=== PATIENT | female | born 1980 | race African-American/Black ===

== ENCOUNTER 2019-02-19 01:31 | Observation (INO) ==
[2019-02-19] MEDS ORDERED: ONDANSETRON 4 MG/2 ML VIAL IV STA (01:59)
[2019-02-19] MEDS ORDERED: MORPHINE 4 MG/1 ML VIAL IV STA (01:59)
[2019-02-19] MEDS ORDERED: ALUM/MAG/SIMETH/LIDO VISC 1:1 30 ML BOTTLE PO STA (01:59)
[2019-02-19] MEDS ORDERED: NITROGLYCERIN 2% OINT 1 INCH/GM PACK TOP STA (01:59)
[2019-02-19] MEDS ORDERED: ASPIRIN 325 MG TABLET PO STA (01:59)
[2019-02-19 02:09] LABS: Basophils # 0.1 10*3/uL (0.0-0.2); Basophils % 0.7 % (0.0-0.8); Eosinophils # 0.1 10*3/uL (0.0-0.87); Eosinophils % 1.9 % (0.00-10.9); Hematocrit 38.3 VOL% (35.7-47.0); Hemoglobin 11.8 GM/DL (12.0-16.0); Immature Granulocytes % 0.5 %; Immature Granulocytes Absolute 0.04 #; Lymphocytes # 3.2 10*3/uL (1.4-4.0); Lymphocytes % 43.7 % (21.3-54.2); Mean Corpuscular HGB Conc 30.8 GM/DL (32-36); Mean Corpuscular Volume 90.1 FL (87-102); Mean Platelet Volume 9.4 FL (9.6-12.0); Monocytes % 8.5 % (1.7-12.7); Neutrophils % 44.7 % (38.7-73.9); Platelet Count 313 T/CUMM (130-400); Red Blood Count 4.25 MC/CUMM (3.8-5.5); Red Cell Distribution Width 13.2 % (9.3-17.3); White Blood Count 7.4 T/CUMM (4-12)
[2019-02-19 02:19] LABS: INR 0.9; PT Patient Result 9.4 SECS
[2019-02-19 02:47] LABS: Alanine Aminotransferase 26 U/L (13-56); Albumin 3.9 G/DL (3.4-5.0); Alkaline Phosphatase 123 U/L (45-117); Aspartate Amino Transferase 13 U/L (0-37); Bilirubin,Total < 0.39 MG/DL (0.2-1.0); Blood Urea Nitrogen 4 MG/DL (7-18); Glucose 142 MG/DL (74-106); Osmolality,Calculated 273.7 MOS/KG (273-304); Total Protein 7.3 G/DL (6.4-8.3)
[2019-02-19] MEDS ORDERED: ONDANSETRON 4 MG/2 ML VIAL IV PRN (05:22)
[2019-02-19] MEDS ORDERED: GLUCAGON 1 MG VIAL IM PRN (05:22)
[2019-02-19] MEDS ORDERED: BISACODYL 5 MG TABLET PO PRN (05:22)
[2019-02-19] MEDS ORDERED: POTASSIUM CHLORIDE 20 MEQ TABLET PO PRN ×2 (05:22→15:22)
[2019-02-19] MEDS ORDERED: NICOTINE 21 MG/24 HR PATCH TRANSDERM PRN (05:22)
[2019-02-19] MEDS ORDERED: MAGNESIUM SULF RIDER 2 GM in PREMIX 1 EACH IV PRN (05:22)
[2019-02-19] MEDS ORDERED: DEXTROSE 50% 25 GM/50 ML SYRINGE IV PRN (05:22)
[2019-02-19] MEDS ORDERED: MAGNESIUM SULF RIDER 4 GM in PREMIX 1 EACH IV PRN (05:22)
[2019-02-19] MEDS ORDERED: ACETAMINOPHEN 325 MG TABLET PO PRN (05:22)
[2019-02-19 07:04] LABS: Risk Ratio 1.75; Thyroid Stimulating Hormone 2.05 uIU/ml (0.358-3.74); VLDL CHOLESTEROL 11.4 MG/DL
[2019-02-19] MEDS: INSULIN REGULAR 100 UNIT/ML SUBCUT SCH ×4 (07:26→21:28)
[2019-02-19] MEDS: ASPIRIN 325 MG TABLET PO SCH (09:18)
[2019-02-19] MEDS: PANTOPRAZOLE 40 MG TABLET PO SCH (09:18)
[2019-02-19] MEDS: ENOXAPARIN 40 MG/0.4 ML SYRINGE SUBCUT SCH (09:20)
[2019-02-19] MEDS: MORPHINE 4 MG/1 ML VIAL IV PRN ×2 (09:47→14:33)
[2019-02-19 09:55] LABS: Troponin I < 0.015 NG/ML (0.00-0.045)
[2019-02-19] MEDS ORDERED: ALUM/MAG/SIMETH/LIDO VISC 1:1 30 ML BOTTLE PO PRN (10:21)
[2019-02-19] MEDS ORDERED: NITROGLYCERIN SL 0.4 MG TABLET SL PRN (10:21)
[2019-02-19] MEDS: amLODIPine 10 MG TABLET PO SCH (11:54)
[2019-02-19] MEDS: hydroCHLOROthiazide 12.5 MG CAPSULE PO SCH (11:54)
[2019-02-19] MEDS: VALSARTAN 160 MG TABLET PO SCH (12:28)
[2019-02-19] MEDS: FUROSEMIDE 40 MG/4 ML VIAL IV SCH (15:37)
[2019-02-19] MEDS: CARVEDILOL 12.5 MG TABLET PO SCH (17:12)
[2019-02-19 18:52] LABS: Troponin I < 0.015 NG/ML (0.00-0.045)
[2019-02-19] MEDS ORDERED: ROSUVASTATIN 10 MG TABLET PO SCH (21:00)
[2019-02-20 05:09] LABS: Basophils % 0.5 % (0.0-0.8); Eosinophils # 0.1 10*3/uL (0.0-0.87); Eosinophils % 1.3 % (0.00-10.9); Hematocrit 36.3 VOL% (35.7-47.0); Hemoglobin 11.4 GM/DL (12.0-16.0); Immature Granulocytes % 0.3 %; Immature Granulocytes Absolute 0.02 #; Lymphocytes # 2.9 10*3/uL (1.4-4.0); Lymphocytes % 38.1 % (21.3-54.2); Mean Corpuscular HGB Conc 31.4 GM/DL (32-36); Monocytes % 8.9 % (1.7-12.7); Neutrophils % 50.9 % (38.7-73.9); Platelet Count 310 T/CUMM (130-400); Red Blood Count 4.08 MC/CUMM (3.8-5.5); Red Cell Distribution Width 13.2 % (9.3-17.3); White Blood Count 7.7 T/CUMM (4-12)
[2019-02-20 05:21] LABS: Calcium 9.1 MG/DL (8.5-10.1); Osmolality,Calculated 273.8 MOS/KG (273-304)
[2019-02-20] MEDS: MORPHINE 4 MG/1 ML VIAL IV PRN (08:44)
[2019-02-20] MEDS: FUROSEMIDE 40 MG/4 ML VIAL IV SCH (12:40)
[2019-02-20] MEDS: ENOXAPARIN 40 MG/0.4 ML SYRINGE SUBCUT SCH (12:40)
[2019-02-20] MEDS: amLODIPine 10 MG TABLET PO SCH (12:41)
[2019-02-20] MEDS: ASPIRIN 325 MG TABLET PO SCH (12:42)
[2019-02-20] MEDS: hydroCHLOROthiazide 12.5 MG CAPSULE PO SCH (12:42)
[2019-02-20] MEDS: PANTOPRAZOLE 40 MG TABLET PO SCH (12:42)
[2019-02-20] MEDS: CARVEDILOL 12.5 MG TABLET PO SCH (12:42)
[2019-02-20] MEDS: INSULIN REGULAR 100 UNIT/ML SUBCUT SCH ×2 (12:43)
[2019-02-20] MEDS: VALSARTAN 160 MG TABLET PO SCH (12:45)
[2019-02-20 16:24] VITALS: BP 129/91
== END 2019-02-20 16:45 | disposition home or self-care (01) ==
LOC: N.ED 01:31 → N.EDINP 01:31 → N.2E 06:00
PROVIDERS: ADMIT Hospitalist; ATTEND Hospitalist

== ENCOUNTER 2021-11-15 14:49 | Inpatient (IN) ==
[2021-11-15 16:55] LABS: Basophils % 0.2 % (0.0-0.8); Hematocrit 32.8 VOL% (35.7-47.0); Hemoglobin 10.7 GM/DL (12.0-16.0); Immature Granulocytes % 7.9 %; Immature Granulocytes Absolute 1.37 #; Lymphocytes % 17.4 % (21.3-54.2); Mean Corpuscular HGB Conc 32.6 GM/DL (32-36); Mean Corpuscular Volume 96.2 FL (87-102); Mean Platelet Volume 9.6 FL (9.6-12.0); Monocytes % 1.7 % (1.7-12.7); NRBC # 0.08 10*3/uL; Neutrophils % 72.8 % (38.7-73.9); Platelet Count 509 T/CUMM (130-400); Red Blood Count 3.41 MC/CUMM (3.8-5.5); Red Cell Distribution Width 16.5 % (9.3-17.3); White Blood Count 17.3 T/CUMM (4-12)
[2021-11-15 17:02] LABS: Bacteria,Urine Occasional /HPF (Few); Bilirubin,Urine Negative (Negative); Blood, Urine Moderate mg/dL (Negative); Glucose,Urine (UA) >=500 mg/dL (Negative); Ketones,Urine Negative (Negative); Nitrite,Urine Negative (Negative); Protein,Urine Negative; RBC,Urine 4 /HPF (0-4); Squamous Epithelial Cell,Urine Occasional /HPF (0-10); Urine Appearance CLEAR (Clear); Urine Color Yellow (Yellow); Urine Urobilinogen < 2.0 EU/DL (<2.0)
[2021-11-15 17:18] LABS: Alanine Aminotransferase 188 U/L (13-56); Albumin 2.5 G/DL (3.4-5.0); Alkaline Phosphatase 123 U/L (45-117); Aspartate Amino Transferase 368 U/L (0-37); Bilirubin,Total < 0.39 MG/DL (0.20-1.00); Blood Urea Nitrogen 54 MG/DL (7-18); Calcium 9.3 MG/DL (8.5-10.1); Carbon Dioxide 21 MMOL/L (21-32); Estimated Glom Filtration Rate 38 ML/MIN; Glucose 429 MG/DL (74-106); Osmolality,Calculated 307.7 MOS/KG (273-304); Potassium 4.4 MMOL/L (3.5-5.1); Sodium 138 MMOL/L (136-145); Total Protein 6.9 G/DL (6.4-8.2)
[2021-11-15] MEDS ORDERED: hydrALAZINE 20 MG/1 ML VIAL IV STA (17:24)
[2021-11-15 17:29] LABS: Band Neutrophils 4 % (0-10); Lymphocytes 9 % (20-55); Metamyelocytes 2 %; Nucleated Red Blood Cells 2 (0-5); Segmented Neutrophils 74 % (50-85); Total Cells Counted 100
[2021-11-15 17:31] LABS: Anisocytosis 1+; Atypical Lymphocytes 1+; Macrocytosis 1+; Microcytosis 1+; Platelet Estimate Normal; Polychromasia Few
[2021-11-15 17:54] LABS: ABG Base Excess -3.7 MMOL/L (-2.5-2.5); ABG HCO3 21.2 MMOL/L (20-26); ABG Oxygen Saturation 94.5 % (95-100); ABG PCO2 35.4 MM HG (35-48); ABG PH 7.377 (7.35-7.45); ABG PO2 76.8 MM HG (80-95); ABG TCO2 18.7 MMOL/L (23-27)
[2021-11-15] MEDS ORDERED: ONDANSETRON 4 MG/2 ML VIAL IV PRN (18:06)
[2021-11-15] MEDS ORDERED: DEXTROSE 50% 25 GM/50 ML VIAL IV PRN (18:06)
[2021-11-15] MEDS ORDERED: GLUCAGON 1 MG VIAL IM PRN ×2 (18:06)
[2021-11-15] MEDS ORDERED: DEXTROSE 10% 25 GM/250 ML BAG IV PRN (18:16)
[2021-11-15] MEDS: SODIUM CHLORIDE 0.45% 1,000 ML IV SCH (18:30)
[2021-11-15 18:56] LABS: Ferritin 451.4 ng/mL (8-252)
[2021-11-15] MEDS ORDERED: INSULIN REGULAR 100 UNIT/ML SUBCUT SCH (21:00)
[2021-11-15] MEDS: HEPARIN 5,000 UNIT/1 ML VIAL SUBCUT SCH (22:00)
[2021-11-15] MEDS: cefTRIAXone 1,000 MG in SODIUM CHLORIDE 0.9% 100 ML IV SCH (22:00)
[2021-11-15] MEDS: INSULIN REGULAR 100 UNIT/ML SUBCUT SCH (22:00)
[2021-11-16] MEDS: SODIUM CHLORIDE 0.45% 1,000 ML IV SCH ×3 (03:03→17:33)
[2021-11-16] MEDS: INSULIN REGULAR 100 UNIT/ML SUBCUT SCH ×4 (08:34→20:52)
[2021-11-16] MEDS: PANTOPRAZOLE 40 MG TABLET PO SCH (08:34)
[2021-11-16] MEDS: HEPARIN 5,000 UNIT/1 ML VIAL SUBCUT SCH ×2 (08:34→17:19)
[2021-11-16] MEDS ORDERED: DEXAMETHASONE 4 MG TABLET PO SCH (09:00)
[2021-11-16] MEDS ORDERED: AZITHROMYCIN INJ 500 MG in SODIUM CHLORIDE 0.9% 250 ML IV SCH (13:00)
[2021-11-16 13:26] LABS: Basophils % 0.2 % (0.0-0.8); Hemoglobin 9.8 GM/DL (12.0-16.0); Immature Granulocytes % 11.7 %; Immature Granulocytes Absolute 1.83 #; Lymphocytes # 1.1 10*3/uL (1.4-4.0); Lymphocytes % 7.1 % (21.3-54.2); Mean Corpuscular HGB Conc 32.7 GM/DL (32-36); Mean Corpuscular Volume 96.8 FL (87-102); Mean Platelet Volume 9.7 FL (9.6-12.0); Monocytes % 8.8 % (1.7-12.7); NRBC # 0.05 10*3/uL; Neutrophils % 72.2 % (38.7-73.9); Platelet Count 425 T/CUMM (130-400); Red Cell Distribution Width 16.3 % (9.3-17.3); White Blood Count 15.6 T/CUMM (4-12)
[2021-11-16] MEDS: methylPREDNISolone SOD SUC 40 MG/1 ML VIAL IV SCH ×2 (13:37→17:19)
[2021-11-16] MEDS: BACITRACIN OINT 0.9 GM PACK TOP SCH (13:38)
[2021-11-16 13:43] LABS: Albumin 2.3 G/DL (3.4-5.0); Bilirubin,Total 0.6 MG/DL (0.20-1.00); Calcium 8.6 MG/DL (8.5-10.1); Osmolality,Calculated 289.1 MOS/KG (273-304); Potassium 4.2 MMOL/L (3.5-5.1); Total Protein 6.2 G/DL (6.4-8.2)
[2021-11-16] MEDS ORDERED: REMDESIVIR 200 MG in SODIUM CHLORIDE 0.9% 210 ML IV ONE (13:45)
[2021-11-16] MEDS: INSULIN GLARGINE 100 UNIT/ML SUBCUT SCH (20:52)
[2021-11-16] MEDS: cefTRIAXone 1,000 MG in SODIUM CHLORIDE 0.9% 100 ML IV SCH (20:53)
[2021-11-17] MEDS: methylPREDNISolone SOD SUC 40 MG/1 ML VIAL IV SCH ×2 (00:10→05:11)
[2021-11-17] MEDS: HEPARIN 5,000 UNIT/1 ML VIAL SUBCUT SCH ×2 (00:10→08:57)
[2021-11-17] MEDS: SODIUM CHLORIDE 0.45% 1,000 ML IV SCH (03:37)
[2021-11-17 06:42] LABS: Alanine Aminotransferase 146 U/L (13-56); Albumin 2.3 G/DL (3.4-5.0); Alkaline Phosphatase 106 U/L (45-117); Aspartate Amino Transferase 178 U/L (0-37); Bilirubin,Direct < 0.050 MG/DL (0.0-0.20); Bilirubin,Indirect 0.4 MG/DL (0.0-1.0); Blood Urea Nitrogen 28 MG/DL (7-18); Calcium 8.8 MG/DL (8.5-10.1); Carbon Dioxide 16 MMOL/L (21-32); Estimated Glom Filtration Rate 77 ML/MIN; Glucose 265 MG/DL (74-106); Osmolality,Calculated 278.5 MOS/KG (273-304); Sodium 132 MMOL/L (136-145); Total Protein 6.5 G/DL (6.4-8.2)
[2021-11-17 06:51] LABS: Albumin 2.3 G/DL (3.4-5.0); Bilirubin,Total 0.4 MG/DL (0.20-1.00); Calcium 8.8 MG/DL (8.5-10.1); Osmolality,Calculated 276.7 MOS/KG (273-304); Total Protein 6.4 G/DL (6.4-8.2)
[2021-11-17 08:05] VITALS: BP 160/95
[2021-11-17 08:27] LABS: Basophils # 0.1 10*3/uL (0.0-0.2); Basophils % 0.3 % (0.0-0.8); Hematocrit 32.2 VOL% (35.7-47.0); Hemoglobin 10.7 GM/DL (12.0-16.0); Immature Granulocytes % 14.5 %; Immature Granulocytes Absolute 3.22 #; Lymphocytes # 1.8 10*3/uL (1.4-4.0); Lymphocytes % 8.1 % (21.3-54.2); Mean Corpuscular HGB Conc 33.2 GM/DL (32-36); Mean Corpuscular Volume 94.2 FL (87-102); Mean Platelet Volume 9.2 FL (9.6-12.0); Monocytes % 6.7 % (1.7-12.7); NRBC # 0.07 10*3/uL; Neutrophils % 70.4 % (38.7-73.9); Platelet Count 448 T/CUMM (130-400); Red Blood Count 3.42 MC/CUMM (3.8-5.5); Red Cell Distribution Width 15.6 % (9.3-17.3); White Blood Count 22.1 T/CUMM (4-12)
[2021-11-17] MEDS: BACITRACIN OINT 0.9 GM PACK TOP SCH (08:56)
[2021-11-17] MEDS: PANTOPRAZOLE 40 MG TABLET PO SCH (08:56)
[2021-11-17 09:00] LABS: Band Neutrophils 2 % (0-10); Hypochromia Slight; Lymphocytes 5 % (20-55); Metamyelocytes 6 %; Microcytosis 1+; Myelocytes 1 %; Polychromasia Slight; Segmented Neutrophils 79 % (50-85); Total Cells Counted 100
[2021-11-17] MEDS ORDERED: REMDESIVIR 100 MG in SODIUM CHLORIDE 0.9% 100 ML IV SCH (09:00)
[2021-11-17 09:01] LABS: Platelet Estimate Increased
[2021-11-17] MEDS: INSULIN GLARGINE 100 UNIT/ML SUBCUT SCH (10:15)
[2021-11-17] MEDS: INSULIN REGULAR 100 UNIT/ML SUBCUT SCH (10:15)
== END 2021-11-17 12:42 | disposition home health service (06) | DRG 178 ==
LOC: N.ED 14:49 → N.TELEN 17:30 → SUATTDRO 17:30 → N.TELEN 22:32
PROVIDERS: ADMIT Internal Medicine; ATTEND Emergency Medicine

== ENCOUNTER 2022-03-14 15:03 | Inpatient (IN) ==
[2022-03-14] MEDS ORDERED: NALOXONE 0.4 MG/ML VIAL ONE (16:27)
[2022-03-14] MEDS ORDERED: SODIUM CHLORIDE 0.9% 1,000 ML IV STA (16:30)
[2022-03-14] MEDS ORDERED: NALOXONE 0.4 MG/ML VIAL IV STA (16:30)
[2022-03-14 18:00] LABS: Alanine Aminotransferase 100 U/L (13-56); Albumin 2.9 G/DL (3.4-5.0); Alkaline Phosphatase 92 U/L (45-117); Aspartate Amino Transferase 208 U/L (0-37); Blood Urea Nitrogen 20 MG/DL (7-18); Calcium 8.6 MG/DL (8.5-10.1); Carbon Dioxide 27 MMOL/L (21-32); Chloride 98 MMOL/L (98-107); Glucose 164 MG/DL (74-106); Osmolality,Calculated 268.7 MOS/KG (273-304); Potassium 5.7 MMOL/L (3.5-5.1); Sodium 131 MMOL/L (136-145); Total Protein 5.9 G/DL (6.4-8.2)
[2022-03-14 18:03] LABS: Lactic Acid 2.4 MMOL/L (0.4-2.0)
[2022-03-14 18:21] LABS: Basophils % 0.4 % (0.0-0.8); Eosinophils % 0.1 % (0.00-10.9); Hematocrit 32.5 VOL% (35.7-47.0); Immature Granulocytes % 1.6 %; Immature Granulocytes Absolute 0.15 #; Lymphocytes # 0.8 10*3/uL (1.4-4.0); Lymphocytes % 8.7 % (21.3-54.2); Mean Corpuscular HGB Conc 30.8 GM/DL (32-36); Mean Corpuscular Volume 96.4 FL (87-102); Mean Platelet Volume 9.7 FL (9.6-12.0); Monocytes # 0.9 10*3/uL (0.11-0.8); Monocytes % 9.2 % (1.7-12.7); NRBC # 0.02 10*3/uL; Platelet Count 256 T/CUMM (130-400); Red Blood Count 3.37 MC/CUMM (3.8-5.5); Red Cell Distribution Width 16.8 % (9.3-17.3); White Blood Count 9.2 T/CUMM (4-12)
[2022-03-14] MEDS ORDERED: SODIUM CHLORIDE 0.9% 1,700 ML IV ONE (18:40)
[2022-03-14 19:00] LABS: Bilirubin,Urine Small mg/dL (Negative); Blood, Urine Trace mg/dL (Negative); Glucose,Urine (UA) Negative (Negative); Hyaline Casts,Urine 9 /LPF (0-3); Ketones,Urine Negative (Negative); Mucus,Urine Occasional /LPF (Occasional); Nitrite,Urine Negative (Negative); Protein,Urine 30 mg/dL (Negative); RBC,Urine 1 /HPF (0-4); Squamous Epithelial Cell,Urine Occasional /HPF (0-10); Urine Appearance Clear (Clear); Urine Color Yellow (Yellow); Urine pH 5.5 (4.5-8.0)
[2022-03-14] MEDS ORDERED: PIPERACILLIN/TAZOBACTAM 3,375 MG in SODIUM CHLORIDE 0.9% 100 ML IV SCH (19:00)
[2022-03-14 19:01] LABS: Urine Urobilinogen 0.2 eU/dL (<2.0)
[2022-03-14 19:26] LABS: Barbiturates Screen,Urine Negative (Negative); Benzodiazepines Screen,Urine Negative (Negative); Cannabinoid Screen,Urine Negative (Negative); Opiate Screen,Urine Positive (Negative); Phencyclidine Screen,Urine Negative (Negative)
[2022-03-14] MEDS ORDERED: SODIUM POLYSTYRENE SULFATE 15 GM/60 ML BOTTLE PO STA (19:56)
[2022-03-14] MEDS ORDERED: NICOTINE 21 MG/24 HR PATCH TRANSDERM PRN (20:09)
[2022-03-14] MEDS ORDERED: ZALEPLON 5 MG CAPSULE PO PRN (20:09)
[2022-03-14] MEDS ORDERED: DEXTROSE 50% 25 GM/50 ML VIAL IV PRN (20:09)
[2022-03-14] MEDS ORDERED: hydrALAZINE 20 MG/1 ML VIAL IV PRN (20:09)
[2022-03-14] MEDS ORDERED: GLUCAGON 1 MG VIAL IM PRN ×2 (20:09)
[2022-03-14] MEDS ORDERED: guaiFENesin/DM ER 600-30 MG TABLET PO PRN (20:09)
[2022-03-14] MEDS ORDERED: diphenhydrAMINE CAP 25 MG CAPSULE PO PRN (20:09)
[2022-03-14] MEDS ORDERED: DEXTROSE 10% 250 ML BAG IV PRN (20:23)
[2022-03-14] MEDS: MORPHINE 2 MG/1 ML SYRINGE IV PRN (20:50)
[2022-03-14] MEDS: ONDANSETRON 4 MG/2 ML VIAL IV PRN (20:52)
[2022-03-14] MEDS: ACETAMINOPHEN 325 MG TABLET PO PRN (21:20)
[2022-03-14] MEDS: INSULIN LISPRO 100 UNIT/ML SUBCUT SCH (22:35)
[2022-03-14] MEDS: HEPARIN 5,000 UNIT/1 ML VIAL SUBCUT SCH (22:37)
[2022-03-14] MEDS: SODIUM CHLORIDE 0.9% 1,000 ML IV SCH (22:43)
[2022-03-14] MEDS ORDERED: VANCOMYCIN INJ 2,000 MG in SODIUM CHLORIDE 0.9% 500 ML IV PRN (22:51)
[2022-03-15] MEDS: AZITHROMYCIN INJ 500 MG in SODIUM CHLORIDE 0.9% 250 ML IV SCH ×2 (00:10→21:27)
[2022-03-15] MEDS: ONDANSETRON 4 MG/2 ML VIAL IV PRN ×2 (00:42→18:50)
[2022-03-15] MEDS: ALBUTEROL/IPRATROPIUM 3 ML NEB RESP TX SCH ×4 (00:45→19:20)
[2022-03-15] MEDS: MORPHINE 2 MG/1 ML SYRINGE IV PRN ×3 (00:45→21:24)
[2022-03-15] MEDS ORDERED: cefTRIAXone 2,000 MG in SODIUM CHLORIDE 0.9% 100 ML IV SCH (01:00)
[2022-03-15] MEDS ORDERED: VANCOMYCIN INJ 2,000 MG in SODIUM CHLORIDE 0.9% 500 ML IV ONE (01:00)
[2022-03-15] MEDS: MEROPENEM 500 MG in SODIUM CHLORIDE 0.9% 100 ML IV SCH ×2 (03:40→12:28)
[2022-03-15 04:37] LABS: Basophils % 0.4 % (0.0-0.8); Eosinophils % 0.1 % (0.00-10.9); Hematocrit 32.4 VOL% (35.7-47.0); Hemoglobin 9.9 GM/DL (12.0-16.0); Immature Granulocytes % 1.8 %; Immature Granulocytes Absolute 0.13 #; Lymphocytes # 0.4 10*3/uL (1.4-4.0); Mean Corpuscular HGB Conc 30.6 GM/DL (32-36); Mean Corpuscular Volume 97.3 FL (87-102); Mean Platelet Volume 9.6 FL (9.6-12.0); Monocytes # 0.6 10*3/uL (0.11-0.8); Monocytes % 8.1 % (1.7-12.7); NRBC # 0.02 10*3/uL; Neutrophils % 83.6 % (38.7-73.9); Platelet Count 252 T/CUMM (130-400); Red Blood Count 3.33 MC/CUMM (3.8-5.5); Red Cell Distribution Width 16.9 % (9.3-17.3); White Blood Count 7.3 T/CUMM (4-12)
[2022-03-15 05:02] LABS: Albumin 2.6 G/DL (3.4-5.0); Bilirubin,Direct 0.43 MG/DL (0.0-0.20); Bilirubin,Indirect 0.4 MG/DL (0.0-1.0); Bilirubin,Total 0.8 MG/DL (0.20-1.00); Total Protein 6.2 G/DL (6.4-8.2)
[2022-03-15 05:02] LABS: Lymphocytes 11 % (20-55); Platelet Estimate Normal; Total Cells Counted 100
[2022-03-15 05:06] LABS: Albumin 2.6 G/DL (3.4-5.0); Bilirubin,Total 0.8 MG/DL (0.20-1.00); Calcium 8.3 MG/DL (8.5-10.1); Osmolality,Calculated 273.1 MOS/KG (273-304); Potassium 4.1 MMOL/L (3.5-5.1); Total Protein 6.3 G/DL (6.4-8.2)
[2022-03-15 05:34] LABS: Hepatitis B Core IgM Quant 0.15 Index; Hepatitis B Surface Ag Quant < 0.10 Index; Hepatitis B Surface Ag Result Non-Reactive (NonReactive); Hepatitis C Virus Ab Quant 0.03 Index; Hepatitis C Virus Ab Result Non-Reactive (NonReactive)
[2022-03-15] MEDS: SODIUM CHLORIDE 0.9% 1,000 ML IV SCH ×3 (08:29→17:01)
[2022-03-15] MEDS: ACETAMINOPHEN 325 MG TABLET PO PRN (08:30)
[2022-03-15] MEDS: IBUPROFEN 600 MG TABLET PO PRN ×2 (12:22→23:52)
[2022-03-15] MEDS: INSULIN LISPRO 100 UNIT/ML SUBCUT SCH ×4 (12:29→21:31)
[2022-03-15] MEDS ORDERED: cefTRIAXone 2,000 MG in SODIUM CHLORIDE 0.9% 100 ML IV ONE ×2 (14:39→21:00)
[2022-03-15 14:59] LABS: Arterial Base Excess iSTAT -2 MMOL/L (-2.5-2.5); Arterial Bicarbonate iSTAT 23.1 MMOL/L (20-26); Arterial O2 Saturation iSTAT 96 % (95-100); Arterial PCO2 iSTAT 38 MM HG (35-48); Arterial PO2 iSTAT 82 MM HG (80-95); Arterial Total CO2 iSTAT 24 MMO/L (23-27); Arterial pH iSTAT 7.388 (7.35-7.45)
[2022-03-15] MEDS: ACETAMINOPHEN 650 MG SUPP RECTAL PRN (15:00)
[2022-03-15] MEDS ORDERED: SODIUM CHLORIDE 0.9% 1,000 ML IV ONE (15:00)
[2022-03-15] MEDS: BISACODYL 5 MG TABLET PO SCH (15:03)
[2022-03-15] MEDS: PANTOPRAZOLE 40 MG TABLET PO SCH (15:03)
[2022-03-15] MEDS: HEPARIN 5,000 UNIT/1 ML VIAL SUBCUT SCH ×2 (15:04→21:22)
[2022-03-15] MEDS: cefTRIAXone 2,000 MG in SODIUM CHLORIDE 0.9% 100 ML IV SCH (16:26)
[2022-03-16] MEDS: ALBUTEROL/IPRATROPIUM 3 ML NEB RESP TX SCH ×4 (00:12→19:24)
[2022-03-16] MEDS: SODIUM CHLORIDE 0.9% 1,000 ML IV SCH ×5 (00:18→22:00)
[2022-03-16] MEDS: MORPHINE 2 MG/1 ML SYRINGE IV PRN ×2 (01:59→10:16)
[2022-03-16] MEDS: ONDANSETRON 4 MG/2 ML VIAL IV PRN ×2 (02:02→17:07)
[2022-03-16] MEDS: cefTRIAXone 2,000 MG in SODIUM CHLORIDE 0.9% 100 ML IV SCH ×2 (03:25→17:03)
[2022-03-16 05:01] LABS: Basophils % 0.3 % (0.0-0.8); Eosinophils % 0.1 % (0.00-10.9); Hematocrit 30.6 VOL% (35.7-47.0); Hemoglobin 9.6 GM/DL (12.0-16.0); Immature Granulocytes Absolute 0.14 #; Lymphocytes # 0.4 10*3/uL (1.4-4.0); Lymphocytes % 5.1 % (21.3-54.2); Mean Corpuscular HGB Conc 31.4 GM/DL (32-36); Mean Corpuscular Volume 95.9 FL (87-102); Mean Platelet Volume 9.5 FL (9.6-12.0); Monocytes # 0.4 10*3/uL (0.11-0.8); Monocytes % 6.1 % (1.7-12.7); Neutrophils % 86.4 % (38.7-73.9); Platelet Count 243 T/CUMM (130-400); Red Blood Count 3.19 MC/CUMM (3.8-5.5); Red Cell Distribution Width 16.5 % (9.3-17.3); White Blood Count 7.1 T/CUMM (4-12)
[2022-03-16 05:32] LABS: Band Neutrophils 4 % (0-10); Lymphocytes 2 % (20-55); Platelet Estimate Adequate; Total Cells Counted 100
[2022-03-16 05:40] LABS: Calcium 8.1 MG/DL (8.5-10.1); Osmolality,Calculated 265.4 MOS/KG (273-304); Potassium 3.9 MMOL/L (3.5-5.1)
[2022-03-16] MEDS: IBUPROFEN 600 MG TABLET PO PRN (07:39)
[2022-03-16] MEDS ORDERED: VANCOMYCIN INJ 2,500 MG in SODIUM CHLORIDE 0.9% 500 ML IV ONE (09:00)
[2022-03-16] MEDS: INSULIN LISPRO 100 UNIT/ML SUBCUT SCH ×4 (10:22→20:31)
[2022-03-16] MEDS: BISACODYL 5 MG TABLET PO SCH (10:23)
[2022-03-16] MEDS: PANTOPRAZOLE 40 MG TABLET PO SCH (10:23)
[2022-03-16] MEDS: ACETAMINOPHEN 650 MG SUPP RECTAL PRN (13:26)
[2022-03-16] MEDS ORDERED: DIAZEPAM 5 MG TABLET PO ONE (13:57)
[2022-03-16] MEDS ORDERED: SODIUM CHLORIDE 0.45% 1,000 ML IV SCH (14:00)
[2022-03-16 16:02] LABS: Lymphocytes,CSF 90 %; Monocytes,CSF 10 %
[2022-03-16 16:03] LABS: Red Blood Cell,CSF 14 C/CUMM; White Blood Cell,CSF 2 C/CUMM
[2022-03-16 16:04] LABS: Appearance,CSF Clear
[2022-03-16] MEDS: ACETAMINOPHEN 325 MG TABLET PO PRN (19:09)
[2022-03-16] MEDS: AZITHROMYCIN INJ 500 MG in SODIUM CHLORIDE 0.9% 250 ML IV SCH (20:21)
[2022-03-16] MEDS: VANCOMYCIN INJ 2,000 MG in SODIUM CHLORIDE 0.9% 500 ML IV SCH (22:03)
[2022-03-17] MEDS: ALBUTEROL/IPRATROPIUM 3 ML NEB RESP TX SCH ×4 (00:28→21:30)
[2022-03-17] MEDS: ACETAMINOPHEN 650 MG SUPP RECTAL PRN ×3 (02:10→06:27)
[2022-03-17] MEDS: MORPHINE 2 MG/1 ML SYRINGE IV PRN ×5 (02:46→22:15)
[2022-03-17] MEDS: cefTRIAXone 2,000 MG in SODIUM CHLORIDE 0.9% 100 ML IV SCH (02:54)
[2022-03-17 05:29] LABS: Basophils % 0.4 % (0.0-0.8); Hematocrit 32.2 VOL% (35.7-47.0); Hemoglobin 10.2 GM/DL (12.0-16.0); Immature Granulocytes % 2.2 %; Immature Granulocytes Absolute 0.18 #; Lymphocytes # 0.4 10*3/uL (1.4-4.0); Lymphocytes % 5.1 % (21.3-54.2); Mean Corpuscular HGB Conc 31.7 GM/DL (32-36); Mean Corpuscular Volume 93.9 FL (87-102); Mean Platelet Volume 9.9 FL (9.6-12.0); Monocytes % 12.5 % (1.7-12.7); NRBC # 0.03 10*3/uL; Neutrophils % 79.8 % (38.7-73.9); Platelet Count 267 T/CUMM (130-400); Red Blood Count 3.43 MC/CUMM (3.8-5.5); Red Cell Distribution Width 16.5 % (9.3-17.3); White Blood Count 8.1 T/CUMM (4-12)
[2022-03-17 05:44] LABS: Calcium 8.7 MG/DL (8.5-10.1); Osmolality,Calculated 274.8 MOS/KG (273-304); Potassium 3.2 MMOL/L (3.5-5.1)
[2022-03-17 05:52] LABS: Hypochromia Slight; Lymphocytes 7 % (20-55); Platelet Estimate Normal; Total Cells Counted 100
[2022-03-17] MEDS: SODIUM CHLORIDE 0.9% 1,000 ML IV SCH ×2 (06:43→08:49)
[2022-03-17] MEDS: INSULIN LISPRO 100 UNIT/ML SUBCUT SCH ×4 (07:35→22:35)
[2022-03-17 08:15] LABS: Albumin 2.3 G/DL (3.4-5.0); Bilirubin,Total 0.4 MG/DL (0.20-1.00); Calcium 8.5 MG/DL (8.5-10.1); Osmolality,Calculated 276.7 MOS/KG (273-304); Potassium 3.3 MMOL/L (3.5-5.1); Total Protein 6.6 G/DL (6.4-8.2)
[2022-03-17] MEDS: VANCOMYCIN INJ 2,000 MG in SODIUM CHLORIDE 0.9% 500 ML IV SCH ×2 (08:50→22:39)
[2022-03-17] MEDS: BISACODYL 5 MG TABLET PO SCH (08:52)
[2022-03-17] MEDS: PANTOPRAZOLE 40 MG TABLET PO SCH (08:52)
[2022-03-17] MEDS: IBUPROFEN 600 MG TABLET PO PRN ×2 (09:12→15:33)
[2022-03-17] MEDS: CEFEPIME 1,000 MG in SODIUM CHLORIDE 0.9% 100 ML IV SCH ×2 (10:46→11:19)
[2022-03-17] MEDS: FUROSEMIDE 40 MG/4 ML VIAL IV SCH (12:31)
[2022-03-17] MEDS: CEFEPIME 2,000 MG in SODIUM CHLORIDE 0.9% 100 ML IV SCH ×2 (12:31→20:49)
[2022-03-17] MEDS: ACETAMINOPHEN 325 MG TABLET PO PRN (12:34)
[2022-03-17] MEDS: POTASSIUM CHLORIDE 20 MEQ TABLET PO PRN ×4 (15:33→23:50)
[2022-03-17] MEDS: AZITHROMYCIN INJ 500 MG in SODIUM CHLORIDE 0.9% 250 ML IV SCH (21:26)
[2022-03-18] MEDS: ALBUTEROL/IPRATROPIUM 3 ML NEB RESP TX SCH ×4 (00:26→20:09)
[2022-03-18] MEDS: IBUPROFEN 600 MG TABLET PO PRN ×2 (03:33→13:03)
[2022-03-18] MEDS: CEFEPIME 2,000 MG in SODIUM CHLORIDE 0.9% 100 ML IV SCH ×3 (03:34→22:35)
[2022-03-18] MEDS: MORPHINE 2 MG/1 ML SYRINGE IV PRN ×4 (06:31→22:32)
[2022-03-18 07:28] LABS: Basophils % 0.3 % (0.0-0.8); Eosinophils % 0.6 % (0.00-10.9); Hematocrit 29.6 VOL% (35.7-47.0); Hemoglobin 9.3 GM/DL (12.0-16.0); Immature Granulocytes % 5.2 %; Immature Granulocytes Absolute 0.36 #; Lymphocytes # 0.6 10*3/uL (1.4-4.0); Lymphocytes % 7.9 % (21.3-54.2); Mean Corpuscular HGB Conc 31.4 GM/DL (32-36); Mean Corpuscular Volume 92.2 FL (87-102); Mean Platelet Volume 9.8 FL (9.6-12.0); Monocytes # 0.6 10*3/uL (0.11-0.8); Monocytes % 8.7 % (1.7-12.7); NRBC # 0.07 10*3/uL; Neutrophils % 77.3 % (38.7-73.9); Platelet Count 300 T/CUMM (130-400); Red Blood Count 3.21 MC/CUMM (3.8-5.5); Red Cell Distribution Width 16.9 % (9.3-17.3); White Blood Count 6.9 T/CUMM (4-12)
[2022-03-18 07:48] LABS: Albumin 2.1 G/DL (3.4-5.0); Bilirubin,Total 0.4 MG/DL (0.20-1.00); Calcium 8.5 MG/DL (8.5-10.1); Osmolality,Calculated 279.3 MOS/KG (273-304); Potassium 3.4 MMOL/L (3.5-5.1); Total Protein 5.9 G/DL (6.4-8.2)
[2022-03-18 07:52] LABS: Anisocytosis 1+; Band Neutrophils 6 % (0-10); Hypochromia 1+; Lymphocytes 7 % (20-55); Microcytosis 1+; Total Cells Counted 100
[2022-03-18] MEDS: INSULIN LISPRO 100 UNIT/ML SUBCUT SCH ×4 (07:54→22:41)
[2022-03-18] MEDS: BISACODYL 5 MG TABLET PO SCH (09:47)
[2022-03-18] MEDS: ACETAMINOPHEN 325 MG TABLET PO PRN (09:47)
[2022-03-18] MEDS: FUROSEMIDE 40 MG/4 ML VIAL IV SCH (09:47)
[2022-03-18] MEDS: PANTOPRAZOLE 40 MG TABLET PO SCH (09:47)
[2022-03-18] MEDS: POTASSIUM BICARB EFFERVESCENT 20 MEQ TAB.EFF PER TUBE PRN ×2 (09:47→11:41)
[2022-03-18] MEDS: VANCOMYCIN INJ 2,000 MG in SODIUM CHLORIDE 0.9% 500 ML IV SCH (09:48)
[2022-03-18] MEDS: FLUCONAZOLE INJ 200 MG/100 ML PREMIX IV SCH (09:50)
[2022-03-18] MEDS ORDERED: traMADol 50 MG TABLET PO PRN (11:03)
[2022-03-18] MEDS: POTASSIUM CHLORIDE 20 MEQ TABLET PO PRN ×2 (18:01→22:40)
[2022-03-18] MEDS: HYDROXYCHLOROQUINE 200 MG TABLET PO SCH (22:40)
[2022-03-18] MEDS: carvediloL 25 MG TABLET PO SCH (22:40)
[2022-03-18] MEDS: LEVOTHYROXINE 50 MCG TABLET PO SCH (22:40)
[2022-03-18] MEDS: VANCOMYCIN INJ 1,750 MG in SODIUM CHLORIDE 0.9% 500 ML IV SCH (23:16)
[2022-03-19] MEDS: ALBUTEROL/IPRATROPIUM 3 ML NEB RESP TX SCH ×4 (00:25→19:45)
[2022-03-19] MEDS: POTASSIUM CHLORIDE RIDER 10 MEQ/100 ML PREMIX IV PRN ×4 (02:20→05:40)
[2022-03-19] MEDS: IBUPROFEN 600 MG TABLET PO PRN ×2 (04:21→10:44)
[2022-03-19] MEDS: MORPHINE 2 MG/1 ML SYRINGE IV PRN ×3 (04:43→15:58)
[2022-03-19] MEDS: CEFEPIME 2,000 MG in SODIUM CHLORIDE 0.9% 100 ML IV SCH ×3 (06:41→21:40)
[2022-03-19] MEDS: INSULIN LISPRO 100 UNIT/ML SUBCUT SCH ×4 (08:21→21:41)
[2022-03-19] MEDS ORDERED: METHOTREXATE 2.5 MG TABLET PO SCH (09:00)
[2022-03-19] MEDS: PANTOPRAZOLE 40 MG TABLET PO SCH (10:35)
[2022-03-19] MEDS: HYDROXYCHLOROQUINE 200 MG TABLET PO SCH ×2 (10:35→21:40)
[2022-03-19] MEDS: BISACODYL 5 MG TABLET PO SCH (10:35)
[2022-03-19] MEDS: carvediloL 25 MG TABLET PO SCH ×2 (10:35→21:40)
[2022-03-19] MEDS: FUROSEMIDE 40 MG/4 ML VIAL IV SCH (10:36)
[2022-03-19] MEDS: FLUCONAZOLE INJ 200 MG/100 ML PREMIX IV SCH (10:40)
[2022-03-19] MEDS: VANCOMYCIN INJ 1,750 MG in SODIUM CHLORIDE 0.9% 500 ML IV SCH ×2 (10:43→22:23)
[2022-03-19] MEDS: ONDANSETRON 4 MG/2 ML VIAL IV PRN (18:51)
[2022-03-19] MEDS: LEVOTHYROXINE 50 MCG TABLET PO SCH (21:40)
[2022-03-20] MEDS: ALBUTEROL/IPRATROPIUM 3 ML NEB RESP TX SCH ×4 (00:15→19:35)
[2022-03-20 05:02] LABS: Basophils % 0.2 % (0.0-0.8); Eosinophils # 0.1 10*3/uL (0.0-0.87); Eosinophils % 1.1 % (0.00-10.9); Hematocrit 26.5 VOL% (35.7-47.0); Hemoglobin 8.2 GM/DL (12.0-16.0); Immature Granulocytes Absolute 0.83 #; Lymphocytes # 0.8 10*3/uL (1.4-4.0); Lymphocytes % 8.7 % (21.3-54.2); Mean Corpuscular HGB Conc 30.9 GM/DL (32-36); Mean Corpuscular Volume 93.3 FL (87-102); Mean Platelet Volume 9.6 FL (9.6-12.0); Monocytes # 0.7 10*3/uL (0.11-0.8); Monocytes % 7.2 % (1.7-12.7); NRBC # 0.12 10*3/uL; Neutrophils % 73.8 % (38.7-73.9); Platelet Count 348 T/CUMM (130-400); Red Blood Count 2.84 MC/CUMM (3.8-5.5); Red Cell Distribution Width 17.6 % (9.3-17.3); White Blood Count 9.2 T/CUMM (4-12)
[2022-03-20] MEDS: CEFEPIME 2,000 MG in SODIUM CHLORIDE 0.9% 100 ML IV SCH ×3 (05:14→21:57)
[2022-03-20] MEDS: MORPHINE 2 MG/1 ML SYRINGE IV PRN ×5 (05:14→23:38)
[2022-03-20 05:25] LABS: Alanine Aminotransferase 87 U/L (13-56); Albumin 2.1 G/DL (3.4-5.0); Alkaline Phosphatase 94 U/L (45-117); Aspartate Amino Transferase 60 U/L (0-37); Bilirubin,Total < 0.39 MG/DL (0.20-1.00); Blood Urea Nitrogen 4 MG/DL (7-18); Calcium 8.3 MG/DL (8.5-10.1); Carbon Dioxide 22 MMOL/L (21-32); Chloride 109 MMOL/L (98-107); Glucose 166 MG/DL (74-106); Osmolality,Calculated 279.4 MOS/KG (273-304); Potassium 3.4 MMOL/L (3.5-5.1); Sodium 140 MMOL/L (136-145); Total Protein 5.7 G/DL (6.4-8.2)
[2022-03-20 05:30] LABS: Band Neutrophils 1 % (0-10); Hypochromia Slight; Lymphocytes 9 % (20-55); Platelet Estimate Adequate; Total Cells Counted 100
[2022-03-20] MEDS: carvediloL 25 MG TABLET PO SCH ×2 (09:33→20:30)
[2022-03-20] MEDS: PANTOPRAZOLE 40 MG TABLET PO SCH (09:33)
[2022-03-20] MEDS: INSULIN LISPRO 100 UNIT/ML SUBCUT SCH ×4 (09:33→20:31)
[2022-03-20] MEDS: ACETAMINOPHEN 325 MG TABLET PO PRN (09:33)
[2022-03-20] MEDS: POTASSIUM CHLORIDE 20 MEQ TABLET PO PRN ×3 (09:34→14:25)
[2022-03-20] MEDS: HYDROXYCHLOROQUINE 200 MG TABLET PO SCH ×2 (09:34→20:30)
[2022-03-20] MEDS: FUROSEMIDE 40 MG/4 ML VIAL IV SCH (09:35)
[2022-03-20] MEDS: FLUCONAZOLE INJ 200 MG/100 ML PREMIX IV SCH (09:35)
[2022-03-20] MEDS: BISACODYL 5 MG TABLET PO SCH (09:35)
[2022-03-20] MEDS: VANCOMYCIN INJ 1,750 MG in SODIUM CHLORIDE 0.9% 500 ML IV SCH ×2 (11:00→22:50)
[2022-03-20] MEDS: LEVOTHYROXINE 50 MCG TABLET PO SCH (20:30)
[2022-03-20] MEDS: IBUPROFEN 600 MG TABLET PO PRN (23:11)
[2022-03-21] MEDS: ALBUTEROL/IPRATROPIUM 3 ML NEB RESP TX SCH ×2 (01:55→07:48)
[2022-03-21] MEDS: CEFEPIME 2,000 MG in SODIUM CHLORIDE 0.9% 100 ML IV SCH (05:57)
[2022-03-21 07:26] LABS: Albumin 2.1 G/DL (3.4-5.0); Bilirubin,Total 0.4 MG/DL (0.20-1.00); Calcium 8.3 MG/DL (8.5-10.1); Potassium 3.5 MMOL/L (3.5-5.1); Total Protein 5.9 G/DL (6.4-8.2)
[2022-03-21 07:33] LABS: Basophils % 0.3 % (0.0-0.8); Eosinophils # 0.1 10*3/uL (0.0-0.87); Hematocrit 26.6 VOL% (35.7-47.0); Hemoglobin 8.3 GM/DL (12.0-16.0); Immature Granulocytes % 7.3 %; Immature Granulocytes Absolute 0.66 #; Lymphocytes # 0.9 10*3/uL (1.4-4.0); Lymphocytes % 10.3 % (21.3-54.2); Mean Corpuscular HGB Conc 31.2 GM/DL (32-36); Mean Platelet Volume 9.5 FL (9.6-12.0); Monocytes # 0.7 10*3/uL (0.11-0.8); Monocytes % 7.4 % (1.7-12.7); NRBC # 0.14 10*3/uL; Neutrophils % 73.7 % (38.7-73.9); Platelet Count 362 T/CUMM (130-400); Red Blood Count 2.83 MC/CUMM (3.8-5.5); Red Cell Distribution Width 18.4 % (9.3-17.3)
[2022-03-21 07:54] LABS: Band Neutrophils 2 % (0-10); Hypochromia Slight; Lymphocytes 9 % (20-55); Platelet Estimate Adequate; Total Cells Counted 100
[2022-03-21] MEDS: INSULIN LISPRO 100 UNIT/ML SUBCUT SCH ×2 (08:20→11:52)
[2022-03-21] MEDS: FLUCONAZOLE INJ 200 MG/100 ML PREMIX IV SCH (08:36)
[2022-03-21] MEDS: MORPHINE 2 MG/1 ML SYRINGE IV PRN (08:38)
[2022-03-21] MEDS: BISACODYL 5 MG TABLET PO SCH (08:39)
[2022-03-21] MEDS: carvediloL 25 MG TABLET PO SCH (08:39)
[2022-03-21] MEDS: HYDROXYCHLOROQUINE 200 MG TABLET PO SCH (08:39)
[2022-03-21] MEDS: PANTOPRAZOLE 40 MG TABLET PO SCH (08:39)
[2022-03-21] MEDS: FUROSEMIDE 40 MG/4 ML VIAL IV SCH (08:39)
[2022-03-21 08:50] LABS: Sedimentation Rate-Westergren 104 MM/HR (0-20)
[2022-03-21] MEDS: VANCOMYCIN INJ 1,750 MG in SODIUM CHLORIDE 0.9% 500 ML IV SCH (09:41)
[2022-03-21 11:55] VITALS: BP 139/58
== END 2022-03-21 13:10 | disposition home or self-care (01) | DRG 871 ==
LOC: EDUNIT# → N.ED 15:03 → SUATTDRO 20:00 → N.EDINP 20:00 → N.5E 20:34
PROVIDERS: ADMIT Internal Medicine; ATTEND Internal Medicine

== ENCOUNTER 2022-04-12 01:21 | Observation (INO) ==
[2022-04-12] MEDS ORDERED: FUROSEMIDE 40 MG/4 ML VIAL IV STA ×2 (04:13→10:14)
[2022-04-12] MEDS ORDERED: NITROGLYCERIN 2% OINT 1 INCH/GM PACK TOP STA (04:13)
[2022-04-12] MEDS ORDERED: ASPIRIN 325 MG TABLET PO STA (04:13)
[2022-04-12] MEDS ORDERED: ONDANSETRON 4 MG/2 ML VIAL IV STA ×2 (04:13→10:14)
[2022-04-12] MEDS ORDERED: MORPHINE 2 MG/1 ML SYRINGE IV STA (04:13)
[2022-04-12] MEDS ORDERED: DEXAMETHASONE 4 MG/1 ML VIAL IV STA (04:13)
[2022-04-12 06:26] LABS: Basophils % 0.1 % (0.0-0.8); Hematocrit 26.4 VOL% (35.7-47.0); Hemoglobin 8.5 GM/DL (12.0-16.0); Immature Granulocytes % 0.7 %; Immature Granulocytes Absolute 0.06 #; Lymphocytes % 12.4 % (21.3-54.2); Mean Corpuscular HGB Conc 32.2 GM/DL (32-36); Mean Corpuscular Volume 93.6 FL (87-102); Mean Platelet Volume 9.6 FL (9.6-12.0); Monocytes # 0.4 10*3/uL (0.11-0.8); Monocytes % 4.4 % (1.7-12.7); NRBC # 0.05 10*3/uL; Neutrophils % 82.4 % (38.7-73.9); Platelet Count 264 T/CUMM (130-400); Red Blood Count 2.82 MC/CUMM (3.8-5.5); Red Cell Distribution Width 18.5 % (9.3-17.3); White Blood Count 8.4 T/CUMM (4-12)
[2022-04-12 06:32] LABS: Albumin 3.4 G/DL (3.4-5.0); Bilirubin,Total 0.4 MG/DL (0.20-1.00); Calcium 8.4 MG/DL (8.5-10.1); Osmolality,Calculated 280.4 MOS/KG (273-304); Potassium 5.6 MMOL/L (3.5-5.1); Total Protein 6.4 G/DL (6.4-8.2)
[2022-04-12] MEDS ORDERED: HYDROmorphone 1 MG/1 ML SYRINGE IV STA (10:14)
[2022-04-12] MEDS ORDERED: ALBUTEROL 2.5 MG/3 ML NEB RESP TX PRN (10:48)
[2022-04-12] MEDS ORDERED: ONDANSETRON 4 MG/2 ML VIAL IV PRN (10:48)
[2022-04-12] MEDS ORDERED: GLUCAGON 1 MG VIAL IM PRN (10:48)
[2022-04-12] MEDS ORDERED: DOCUSATE SODIUM 100 MG CAPSULE PO PRN (10:48)
[2022-04-12] MEDS ORDERED: ACETAMINOPHEN 325 MG TABLET PO PRN (10:48)
[2022-04-12] MEDS ORDERED: DEXTROSE 10% 250 ML BAG IV PRN (10:58)
[2022-04-12] MEDS ORDERED: hydrALAZINE 20 MG/1 ML VIAL IV STA (11:00)
[2022-04-12] MEDS ORDERED: METHOTREXATE 2.5 MG TABLET PO SCH (11:00)
[2022-04-12] MEDS ORDERED: SODIUM POLYSTYRENE SULFATE 15 GM/60 ML BOTTLE PO STA (11:09)
[2022-04-12] MEDS: ENOXAPARIN 40 MG/0.4 ML SYRINGE SUBCUT SCH (12:07)
[2022-04-12] MEDS: INSULIN LISPRO 100 UNIT/ML SUBCUT SCH ×3 (13:20→21:15)
[2022-04-12] MEDS: MORPHINE 2 MG/1 ML SYRINGE IV PRN ×2 (15:52→21:02)
[2022-04-12] MEDS ORDERED: VALSARTAN 160 MG TABLET PO SCH (21:00)
[2022-04-12] MEDS ORDERED: CYCLOBENZAPRINE 10 MG TABLET PO SCH (21:00)
[2022-04-12] MEDS ORDERED: ATORVASTATIN 10 MG TABLET PO SCH (21:00)
[2022-04-12] MEDS: carvediloL 25 MG TABLET PO SCH (21:01)
[2022-04-12] MEDS: minoxidiL 2.5 MG TABLET PO SCH (21:01)
[2022-04-12] MEDS: MAGNESIUM OXIDE 400 MG TABLET PO SCH (21:01)
[2022-04-12] MEDS: HYDROXYCHLOROQUINE 200 MG TABLET PO SCH (21:01)
[2022-04-13 04:55] LABS: Basophils % 0.1 % (0.0-0.8); Hematocrit 24.7 VOL% (35.7-47.0); Hemoglobin 7.7 GM/DL (12.0-16.0); Immature Granulocytes % 1.4 %; Lymphocytes # 0.6 10*3/uL (1.4-4.0); Lymphocytes % 7.6 % (21.3-54.2); Mean Corpuscular HGB Conc 31.2 GM/DL (32-36); Mean Platelet Volume 9.7 FL (9.6-12.0); Monocytes # 0.4 10*3/uL (0.11-0.8); Monocytes % 5.6 % (1.7-12.7); NRBC # 0.03 10*3/uL; Neutrophils % 85.3 % (38.7-73.9); Platelet Count 261 T/CUMM (130-400); Red Cell Distribution Width 18.4 % (9.3-17.3); White Blood Count 7.4 T/CUMM (4-12)
[2022-04-13 05:25] LABS: Calcium 8.2 MG/DL (8.5-10.1); Osmolality,Calculated 283.3 MOS/KG (273-304); Potassium 3.8 MMOL/L (3.5-5.1); Risk Ratio 2.3; Thyroid Stimulating Hormone 0.099 uIU/ml (0.358-3.74); VLDL Cholesterol 17.2 MG/DL
[2022-04-13] MEDS ORDERED: LEVOTHYROXINE 50 MCG TABLET PO SCH (06:00)
[2022-04-13] MEDS: INSULIN LISPRO 100 UNIT/ML SUBCUT SCH (07:49)
[2022-04-13] MEDS: MORPHINE 2 MG/1 ML SYRINGE IV PRN (08:03)
[2022-04-13 08:05] VITALS: BP 127/74
[2022-04-13] MEDS: MAGNESIUM OXIDE 400 MG TABLET PO SCH (08:06)
[2022-04-13] MEDS: carvediloL 25 MG TABLET PO SCH (08:06)
[2022-04-13] MEDS: HYDROXYCHLOROQUINE 200 MG TABLET PO SCH (08:06)
[2022-04-13] MEDS: minoxidiL 2.5 MG TABLET PO SCH (08:06)
[2022-04-13] MEDS: ENOXAPARIN 40 MG/0.4 ML SYRINGE SUBCUT SCH (08:09)
[2022-04-13] MEDS ORDERED: traMADol 50 MG TABLET PO PRN (08:15)
[2022-04-13] MEDS ORDERED: cycloSPORINE OPH EMUL 1 VIAL BOTH EYES SCH (08:30)
[2022-04-13] MEDS ORDERED: PREGABALIN PO SCH (09:00)
[2022-04-13] MEDS ORDERED: FLUoxetine 20 MG CAPSULE PO SCH (09:00)
[2022-04-13] MEDS ORDERED: PANTOPRAZOLE 40 MG TABLET PO SCH (09:00)
[2022-04-13] MEDS ORDERED: FOLIC ACID 1 MG TABLET PO SCH (09:00)
[2022-04-13] MEDS ORDERED: ASPIRIN EC 81 MG TABLET PO SCH (09:00)
[2022-04-13] MEDS ORDERED: NON-FORMULARY MEDICATION (Metformin 1,000 mg Tablet) PO SCH (09:00)
[2022-04-13] MEDS ORDERED: FUROSEMIDE 40 MG/4 ML VIAL IV SCH (09:00)
[2022-04-13] MEDS ORDERED: AMITRIPTYLINE 25 MG TABLET PO SCH (21:00)
[2022-04-13] MEDS ORDERED: NON-FORMULARY MEDICATION (Insulin Degludec [Tresiba Flextouch U-200] 200 unit/mL (3 mL) in SUBCUT SCH (21:00)
== END 2022-04-13 10:34 | disposition home or self-care (01) ==
LOC: N.EDINP 01:21 → N.ED 01:21 → N.5E 11:21
PROVIDERS: ADMIT Internal Medicine; ATTEND Internal Medicine